=== PATIENT | female | born 1965 | race African-American/Black ===

== ENCOUNTER 2017-05-16 11:40 | Emergency (ER) | payer MEDICAID, OTHER ==
[~2017-05-16] VITALS: Ht 167.6 cm; Wt 81.6 kg
[~2017-05-16 11:40] MED LIST: ALBUTEROL SULF8.5 GM INH; AZITHROMYCIN250 MG ORAL; BENADRYL25 MG PO; CIPROFLOXACIN500 M2 ORAL; CYCLOBENZAPRINE10 MG ORAL; IBUPROFEN600 MG ORAL; LEXIVA700 MG ORAL; LOPERAMIDE2 MG PO; METRONIDAZOLE500 MG ORAL; NORCO 5-325 TA1 EACH ORAL; NORVIR100 MG ORAL; PROMETHAZINE-C118 M1 ORAL; ROXICODONE15 MG ORAL; TAMIFLU75 MG ORAL; TRUVADA 200 MG1 EAC1 ORAL; ZOFRAN4 MG PO
[2017-05-16 12:05] VITALS: BP 145/58
[2017-05-16 12:49] LABS: ANION GAP 4 mmol/L (5-15); BLOOD UREA NITROGEN 13 mg/dL (7-18); CALCIUM 8.8 MG/DL (8.5-10.1); CARBON DIOXIDE 29 MMOL/L (21-32); CHLORIDE 104 MMOL/L (98-107); POTASSIUM 3.8 MMOL/L (3.5-5.1); SODIUM 137 MMOL/L (136-145)
[2017-05-16 12:51] LABS: BASOPHILS % (AUTO) 0.8 % (0.0-2.0); EOSINOPHILS % (AUTO) 3.9 % (0.0-3.0); HEMATOCRIT 36.2 % (37.0-47.0); HEMOGLOBIN 11.8 G/DL (12.0-16.0); LYMPHOCYTES % (AUTO) 33.7 % (20.0-45.0); MEAN CORPUSCULAR VOLUME 97 FL (80-99); MONOCYTES % (AUTO) 8.1 % (1.0-10.0); NEUTROPHILS % (AUTO) 53.5 % (45.0-75.0); PLATELET COUNT 251 K/UL (150-450); RED BLOOD COUNT 3.72 M/UL (4.20-5.40); RED CELL DISTRIBUTION WIDTH 11.5 % (11.6-14.8); WHITE BLOOD COUNT 5.8 K/UL (4.8-10.8)
[2017-05-16 12:53] LABS: ALANINE AMINOTRANSFERASE 20 U/L (12-78); ALBUMIN 3.3 G/DL (3.4-5.0); ALBUMIN/GLOBULIN RATIO 0.8 (1.0-2.7); ALKALINE PHOSPHATASE 95 U/L (46-116); ASPARTATE AMINO TRANSFERASE 15 U/L (15-37); BILIRUBIN,TOTAL 0.2 MG/DL (0.2-1.0); CREATINE KINASE 128 U/L (26-308)
--- NOTE | 2017-05-16 13:01 | Diagnostic Imaging Report ---
Indication: Dyspnea Comparison: 05/19/2015 A single view chest radiograph was obtained. Findings: Vascular congestion and mild interstitial edema suspected with mild cardiomegaly. IMPRESSION: Suspect mild interstitial edema
[2017-05-16 13:30] VITALS: BP 119/64
--- NOTE | 2017-05-16 13:40 | Emergency Room Report ---
History of Present Illness General Chief Complaint: Chest Pain Source: Patient Present Illness HPI 51-year-old female presents to the emergency department complaining of 9/10 in severity anterior right-sided chest pain that she describes his discomfort and is tender x2 days. Patient reports onset after doing excessive housecleaning day prior to onset of her symptoms. Patient denies shortness of breath, fevers , chills, productive cough or sputum production. Patient denies cardiac history she reports that she has been borderline diabetic and has intermittent high blood pressure. Denies recent travel or ill contacts. Pt reprots hx of HIV. Denies Palpitations, LOC, AMS, dizziness, Changes in Vision, Sensation, paresthesias, or a sudden severe headache. Allergies: Coded Allergies: No Known Allergies (Verified Allergy, Unknown, 02/14/07) Uncoded Allergies: CHERRIES (Allergy, Unknown, HIVES, SWELLING, 12/18/10) Patient History Past Medical History: see triage record Past Surgical History: none Pertinent Family History: none Last Menstrual Period: 1 year ago Reviewed Nursing Documentation: PMH: Agreed, PSxH: Agreed Nursing Documentation-PMH Past Medical History: No History, Except For Hx Asthma: Yes Review of Systems All Other Systems: negative except mentioned in HPI Physical Exam Vital Signs Date Time Temp Pulse Resp B/P (MAP) Pulse Ox O2 Delivery O2 Flow Rate FiO2 05/16/17 11:49 97.5 74 22 145/75 96 Room Air 97.5 Sp02 EP Interpretation: reviewed, normal General Appearance: no apparent distress, alert, GCS 15, non-toxic Head: normocephalic, atraumatic Eyes: bilateral eye normal inspection, bilateral eye PERRL ENT: hearing grossly normal, normal voice Neck: full range of motion Respiratory: lungs clear, normal breath sounds, no respiratory distress, no accessory muscle use, no wheezing, speaking full sentences, other - TTP to the anterior sternum and right side of the ribcage- reproducible pain Cardiovascular #1: regular rate, rhythm, no edema, normal capillary refill Gastrointestinal: non tender, soft Rectal: deferred Musculoskeletal: back normal, gait/station normal, normal range of motion, tender - Reproducible anterior sternal TTP , and along the right side of the ribcage ttp. Neurologic: alert, oriented x3, responsive, motor strength/tone normal, sensory intact, speech normal, other - ambulatory, grossly normal Psychiatric: judgement/insight normal Skin: normal color, no rash, warm/dry, well hydrated, other - non-diaphoretic Medical Decision Making PA Attestation Dr. Hair is my supervising Physician whom patient management has been discussed with. Diagnostic Impression: Primary Impression: Chest wall muscle strain Qualified Codes: S29.011A - Strain of muscle and tendon of front wall of thorax, initial encounter Additional Impression: Nonspecific chest pain ER Course 51-year-old female presents to the emergency department complaining of 9/10 in severity anterior right-sided chest pain that she describes his discomfort and is tender x2 days. Patient reports onset after doing excessive housecleaning day prior to onset of her symptoms. Patient denies shortness of breath, fevers , chills, productive cough or sputum production. Patient denies cardiac history she reports that she has been borderline diabetic and has intermittent high blood pressure. Denies recent travel or ill contacts. Pt reprots hx of HIV. Denies Palpitations, LOC, AMS, dizziness, Changes in Vision, Sensation, paresthesias, or a sudden severe headache. Ddx considered but are not limited to MA, pneumonia, contusion, costochondritis , PE, ACS, Shoulder strain, Chest wall contusion. aortic dissection. Vital signs: are WNL, pt. is afebrile H&PE are most consistent with pain is reproducible upon palpation suspect musculoskeletal etiology however will do cardiac workup based on age and RF's ORDERS: - EKG: NSR 64 BPM -CBC +-CMP: Unremarkable -Troponin: negative 0.01 CXR: unremarkable ED INTERVENTIONS: - PT. placed on cardiac monitoring. -Toradol IV - [place] PO Given stable vital signs, laboratory and diagnostic results in conjunction with physical exam, I do not identify an emergent condition at this time. With current presentation, pt. is stable for close outpatient follow up and conservative treatment. D/w pt. to return promptly to ED with worsening or new symptoms.- Pt. and verbalizes' understanding and agreement with proposed treatment plan. DISCHARGE: At this time pt. is stable for d/c to home. Will provide printed patient care instructions, and any necessary prescriptions. Care plan and follow up instructions have been discussed with the patient prior to discharge. Labs Test 05/16/17 12:20 White Blood Count 5.8 K/UL (4.8-10.8) Red Blood Count 3.72 M/UL (4.20-5.40) Hemoglobin 11.8 G/DL (12.0-16.0) Hematocrit 36.2 % (37.0-47.0) Mean Corpuscular Volume 97 FL (80-99) Mean Corpuscular Hemoglobin 31.8 PG (27.0-31.0) Mean Corpuscular Hemoglobin Concent 32.7 G/DL (32.0-36.0) Red Cell Distribution Width 11.5 % (11.6-14.8) Platelet Count 251 K/UL (150-450) Mean Platelet Volume 9.5 FL (6.5-10.1) Neutrophils (%) (Auto) 53.5 % (45.0-75.0) Lymphocytes (%) (Auto) 33.7 % (20.0-45.0) Monocytes (%) (Auto) 8.1 % (1.0-10.0) Eosinophils (%) (Auto) 3.9 % (0.0-3.0) Basophils (%) (Auto) 0.8 % (0.0-2.0) Sodium Level 137 MMOL/L (136-145) Potassium Level 3.8 MMOL/L (3.5-5.1) Chloride Level 104 MMOL/L (98-107) Carbon Dioxide Level 29 MMOL/L (21-32) Anion Gap 4 mmol/L (5-15) Blood Urea Nitrogen 13 mg/dL (7-18) Creatinine 1.0 MG/DL (0.55-1.30) Estimat Glomerular Filtration Rate > 60 mL/min (>60) Glucose Level 89 MG/DL (74-106) Calcium Level 8.8 MG/DL (8.5-10.1) Total Bilirubin 0.2 MG/DL (0.2-1.0) Aspartate Amino Transf (AST/SGOT) 15 U/L (15-37) Alanine Aminotransferase (ALT/SGPT) 20 U/L (12-78) Alkaline Phosphatase 95 U/L (46-116) Total Creatine Kinase 128 U/L (26-308) Troponin I 0.017 ng/mL (0.000-0.056) Total Protein 7.7 G/DL (6.4-8.2) Albumin 3.3 G/DL (3.4-5.0) Globulin 4.4 g/dL Albumin/Globulin Ratio 0.8 (1.0-2.7) EKG Diagnostic Results EP Interpretation: Dr. Hair Rate: normal - 64 bpm Rhythm: NSR ST Segments: no acute changes ASA given to the pt in ED: No PA Scribe Text - EK BPM NSR - no acute ST changes reviewed by Dr. Hair, this interpretation was scribed by MAK Carrington Chest X-Ray Diagnostic Results Chest X-Ray Diagnostic Results : Chest X-Ray Ordered: Yes # of Views/Limited/Complete: 1 View Indication: Chest Pain EP Interpretation: Yes PA Xray: Interpretation reviewed, by supervising MD, and agrees with findings. Interpretation: no consolidation, no effusion, no pneumothorax, no acute cardiopulmonary disease Impression: No acute disease Electronically Signed by: Deborah Carrington PA-C Last Vital Signs Date Time Temp Pulse Resp B/P (MAP) Pulse Ox O2 Delivery O2 Flow Rate FiO2 05/16/17 12:05 97.5 70 19 145/58 100 Room Air 97.5 Disposition: HOME, SELF-CARE Condition: Stable Scripts Methocarbamol* (ROBAXIN*) 500 Mg Tablet 1000 MG PO TID, #42 TAB 0 Refills Prov: Deborah Carrington 05/16/17 Ibuprofen* (MOTRIN*) 600 Mg Tablet 600 MG ORAL THREE TIMES A DAY, #30 TAB 0 Refills Prov: Deborah CarringtonA. 05/16/17 Patient Instructions: Chest Wall Pain, Nonspecific Chest Pain Additional Instructions: Take medications as directed. Follow up with a Primary Care Provider in 3-5 days, even if your symptoms have resolved. --Please review list of primary care clinics, if you do not already have a primary care provider Return sooner to ED if new symptoms occur, or current symptoms become worse. Do not drink alcohol, drive, or operate heavy machinery while taking Muscle Relaxer as this may cause drowsiness. - Please note that this Emergency Department Report was dictated using [employer] care legal assistant technology software, occasionally this can lead to erroneous entry secondary to interpretation by the dictation equipment. Deborah Carrington May 16, 2017 13:40
[2017-05-16] MEDS ORDERED: ROBAXIN500 MG PO (13:41)
[2017-05-16] MEDS ORDERED: IBUPROFEN600 MG ORAL (13:41)
[2017-05-16] MEDS ORDERED: HYDROcodone/Acetamin 7.5/325 tab ORAL ONE (13:45)
[2017-05-16] MEDS ORDERED: Ketorolac 30mg Inj IV ONE (13:45)
[2017-05-16 14:04] VITALS: BP 119/64
--- NOTE | 2017-05-17 14:24 | Cardiology Report ---
APPROVED REPORT EKG Measurement Heart [id number] [id number] Normal sinus rhythm Normal ECG
== END 2017-05-16 14:11 | disposition home or self-care (01) ==
LOC: EMR 13:40
DX: S29.011A Strain of muscle and tendon of front wall of thorax, initial encounter (principal); X50.0XXA Overexertion from strenuous movement or load, initial encounter; Y93.E9 Activity, other interior property and clothing maintenance
CPT/HCPCS: 36415; 71045; 80053; 82550; 84484; 85025; 93005; 96374; 99284; J1885

== ENCOUNTER 2018-07-03 14:57 | Emergency (ER) | payer MEDICAID ==
[~2018-07-03] VITALS: Ht 160 cm; Wt 104.3 kg
[~2018-07-03 14:57] MED LIST changes: +ROBAXIN500 MG PO
[2018-07-03 14:59] VITALS: BP 127/72
--- NOTE | 2018-07-03 15:05 | NUR ---
ED Nurse Note: Patient walked in to ED c/o burning sensation while voiding since yesterday. patient reports lower abdomen discomfort. patient denies any vaginal discharge. patient is alert awake x4, ambulatory.
--- NOTE | 2018-07-03 15:09 | Emergency Room Report ---
History of Present Illness General Chief Complaint: Female Urogenital Problems Source: Medical Record Present Illness HPI 52-year-old female patient presents ER complaining of suprapubic tenderness and burning pain with urination for the past day. Reports has not taken medication for relief of symptoms. Denies history of UTI. Denies hematuria. Reports frequency. Denies flank pain or back pain. Denies fever, vomiting, chest pain , shortness of breath. Denies concern for STI, reports she is in a sexual monogamous relationship with her . Denies vaginal discharge. Denies genital rash or lesions. Denies other aggravating or relieving factors. Denies vomiting reports diarrhea. Reports watery diarrhea, denies blood in stool. Denies recent travel outside the country. Reports has not been able to eat today secondary to pain.. Allergies: Coded Allergies: No Known Allergies (Verified Allergy, Unknown, 02/14/07) Uncoded Allergies: CHERRIES (Allergy, Unknown, HIVES, SWELLING, 12/18/10) Patient History Past Medical History: see triage record Last Menstrual Period: 1 yr ago Reviewed Nursing Documentation: PMH: Agreed; PSxH: Agreed Nursing Documentation-PMH Past Medical History: No History, Except For Hx Cardiac Problems: No - HIV Hx Asthma: Yes Hx Neurological Problems: No - Peripheral neuropathy Review of Systems All Other Systems: negative except mentioned in HPI Physical Exam Vital Signs Date Time Temp Pulse Resp B/P (MAP) Pulse Ox O2 Delivery O2 Flow Rate FiO2 07/03/18 14:59 98.1 70 18 127/72 98 Room Air Sp02 EP Interpretation: reviewed, normal General Appearance: well appearing, no apparent distress, alert, GCS 15, non- toxic Head: normocephalic, atraumatic Eyes: bilateral eye normal inspection, bilateral eye PERRL ENT: hearing grossly normal, normal pharynx, no angioedema, normal voice, uvula midline, moist mucus membranes Neck: full range of motion, no bony tend Respiratory: lungs clear, normal breath sounds, no rhonchi, no respiratory distress, no accessory muscle use, no wheezing, speaking full sentences Cardiovascular #1: regular rate, rhythm, no edema Gastrointestinal: soft, no mass, non-distended, no guarding, no rebound, tenderness - Suprapubic, other - Negative Rovsing, negative obturator, negative heel strike Genitourinary: no CVA tenderness Musculoskeletal: back normal, digits/nails normal, gait/station normal, normal range of motion, non-tender Neurologic: alert, oriented x3, responsive, motor strength/tone normal, sensory intact Psychiatric: mood/affect normal Skin: no rash Medical Decision Making PA Attestation Dr. Charles is my supervising Physician whom patient management has been discussed with. Diagnostic Impression: Primary Impression: Epiploic appendagitis ER Course Pt presents to ED c/o dysuria and suprapubic discomfort. DDX considered but are not limited to cystitis, pyelonephritis, STI, vaginitis, , BV, yeast infection, constipation, appendicitis, colitis, gastritis, colitis. VITAL SIGNS are WNL, patient is afebrile. ER COURSE CBC and CMP unremarkable, no elevation in LFTs or WBCs, leukocytes within normal limits UA results show negative nitrites, low suspicion for UTI. If concern for STI, followup with STI clinic for testing and treatment. Denies STI concern. CT abdomen pelvis with contrast epiploic appendagitis. Discuss results with the patient. Provided patient with copy of results. Instructed patient to followup with PCP and discuss results of report with patient, discuss need for further treatment and referral. Consulted with general surgeon who recommended patient be admitted for dehydration prevention and pain control. Patient declined admission. Patient signed out AMA. Advised on taking Motrin for pain control. Reports pain symptoms improved while in the ER. Patient reports she is hungry and would like to go home and eat. States that she will return to the ER if pain symptoms worsen. Instructed patient to return to ER for new or worsening of symptoms including worsening of pain, intractable vomiting, blood in stool, chest pain, shortness of breath. ER precautions given. DISCHARGE Patient is stable for discharge. Patient resting comfortably, in no acute distress, nontoxic appearing, talking without difficulty. Will provide with patient care instructions and any necessary prescriptions. Patient understands and agrees to treatment plan. Patient encouraged to drink plenty of fluids. Patient to take medication as instructed. Care plan and follow-up instructions provided. Patient questions asked and answered. Reports understanding and agreement to treatment plan. Patient instructed to follow-up with primary care provider in 3 - 5 days. ER precautions given. Patient instructed to return to ER immediately for any new or worsening of symptoms. Including but not limited to fever, abdominal pain , intractable vomiting. - Please note that this Emergency Department Report was dictated using [employer] immunology technology software, occasionally this can lead to erroneous entry secondary to interpretation by the dictation equipment. Labs Test 07/03/18 16:00 07/03/18 17:10 Urine Color Yellow Urine Appearance Clear Urine pH 5 (4.5-8.0) Urine Specific [place] 1.020 (1.005-1.035) Urine Protein Negative (NEGATIVE) Urine Glucose (UA) Negative (NEGATIVE) Urine Ketones Negative (NEGATIVE) Urine Blood 2+ (NEGATIVE) Urine Nitrite Negative (NEGATIVE) Urine Bilirubin Negative (NEGATIVE) Urine Urobilinogen Normal MG/DL (0.0-1.0) Urine Leukocyte Esterase 1+ (NEGATIVE) Urine RBC 2-4 /HPF (0 - 2) Urine WBC 0-2 /HPF (0 - 2) Urine Squamous Epithelial Cells Occasional /LPF Urine Bacteria Occasional /HPF (NONE) White Blood Count 9.9 K/UL (4.8-10.8) Red Blood Count 3.84 M/UL (4.20-5.40) Hemoglobin 12.0 G/DL (12.0-16.0) Hematocrit 36.7 % (37.0-47.0) Mean Corpuscular Volume 96 FL (80-99) Mean Corpuscular Hemoglobin 31.4 PG (27.0-31.0) Mean Corpuscular Hemoglobin Concent 32.8 G/DL (32.0-36.0) Red Cell Distribution Width 11.3 % (11.6-14.8) Platelet Count 269 K/UL (150-450) Mean Platelet Volume 8.7 FL (6.5-10.1) Neutrophils (%) (Auto) 60.7 % (45.0-75.0) Lymphocytes (%) (Auto) 29.2 % (20.0-45.0) Monocytes (%) (Auto) 7.1 % (1.0-10.0) Eosinophils (%) (Auto) 1.7 % (0.0-3.0) Basophils (%) (Auto) 1.2 % (0.0-2.0) Sodium Level 139 MMOL/L (136-145) Potassium Level 3.4 MMOL/L (3.5-5.1) Chloride Level 103 MMOL/L (98-107) Carbon Dioxide Level 27 MMOL/L (21-32) Anion Gap 9 mmol/L (5-15) Blood Urea Nitrogen 10 mg/dL (7-18) Creatinine 1.1 MG/DL (0.55-1.30) Estimat Glomerular Filtration Rate > 60 mL/min (>60) Glucose Level 82 MG/DL (74-106) Calcium Level 8.9 MG/DL (8.5-10.1) Total Bilirubin 0.4 MG/DL (0.2-1.0) Aspartate Amino Transf (AST/SGOT) 13 U/L (15-37) Alanine Aminotransferase (ALT/SGPT) 19 U/L (12-78) Alkaline Phosphatase 87 U/L (46-116) Total Protein 8.4 G/DL (6.4-8.2) Albumin 3.7 G/DL (3.4-5.0) Globulin 4.7 g/dL Albumin/Globulin Ratio 0.8 (1.0-2.7) Lipase 125 U/L (73-393) CT/MRI/US Diagnostic Results CT/MRI/US Diagnostic Results : Imaging Test Ordered: CT abdomen pelvis Impression Scar atelectasis right base Circumscribed area of pericolonic fat stranding and edema proximal sigmoid colon for example coronal 34 and 35 most suggestive of epiploic appendagitis No bowel dilation or free air Abdominal solid organs and gallbladder appear within limits Normal caliber appendix without secondary signs Very small free fluid Last Vital Signs Date Time Temp Pulse Resp B/P (MAP) Pulse Ox O2 Delivery O2 Flow Rate FiO2 07/03/18 14:59 98.1 70 18 127/72 98 Room Air Status: improved Disposition: AGAINST MEDICAL ADVICE Condition: Stable Scripts Ibuprofen* (MOTRIN*) 600 Mg Tablet 600 MG ORAL Q8H PRN for For Pain, #30 TAB 0 Refills Prov: Slick Lennon 07/03/18 Patient Instructions: Abdominal Pain, Adult, [id number], Urinary Tract Infection Additional Instructions: Followup with primary care provider in 2-3 days and discuss referral to general surgeon. Take medications as directed. Take Motrin for pain symptoms. Patient questions asked and answered. ER precautions given, patient instructed to return to ER immediately for any new or worsening of symptoms including but not limited to worsening of pain symptoms, blood in stool, chest pain, shortness of breath, intractable vomiting. Slick Lennon Jul 03, 2018 15:09
[2018-07-03] MEDS ORDERED: Phenazopyridine 200mg tab ORAL ONE (15:15)
--- NOTE | 2018-07-03 15:45 | NUR ---
ED Nurse Note: patient drinking 3+ cups of water, patient states she is not ready to void yet.
--- NOTE | 2018-07-03 16:10 | NUR ---
ED Nurse Note: urine sent down to lab
[2018-07-03 16:30] LABS: APPEARANCE,URINE CLEAR; BILIRUBIN, URINE NEGATIVE (NEGATIVE); GLUCOSE, URINE (UA) NEGATIVE (NEGATIVE); KETONES,URINE NEGATIVE (NEGATIVE); LEUKOCYTE ESTERASE ,URINE 1+ (NEGATIVE); NITRITE,URINE NEGATIVE (NEGATIVE); PH,URINE 5 (4.5-8.0); PROTEIN,URINE NEGATIVE (NEGATIVE); UROBILINOGEN,URINE NORMAL MG/DL (0.0-1.0)
[2018-07-03 16:33] LABS: COLOR,URINE YELLOW
[2018-07-03] MEDS ORDERED: Morphine Sulfate 4mg/ml Inj (IV USE ONLY) IVP ONE (17:15)
[2018-07-03] MEDS ORDERED: Isovue-300 100ml vial INJ PRN (17:15)
[2018-07-03 17:40] LABS: BASOPHILS % (AUTO) 1.2 % (0.0-2.0); EOSINOPHILS % (AUTO) 1.7 % (0.0-3.0); HEMATOCRIT 36.7 % (37.0-47.0); LYMPHOCYTES % (AUTO) 29.2 % (20.0-45.0); MEAN CORPUSCULAR VOLUME 96 FL (80-99); MONOCYTES % (AUTO) 7.1 % (1.0-10.0); NEUTROPHILS % (AUTO) 60.7 % (45.0-75.0); PLATELET COUNT 269 K/UL (150-450); RED BLOOD COUNT 3.84 M/UL (4.20-5.40); RED CELL DISTRIBUTION WIDTH 11.3 % (11.6-14.8); WHITE BLOOD COUNT 9.9 K/UL (4.8-10.8)
[2018-07-03 17:41] LABS: ANION GAP 9 mmol/L (5-15); BLOOD UREA NITROGEN 10 mg/dL (7-18); CALCIUM 8.9 MG/DL (8.5-10.1); CARBON DIOXIDE 27 MMOL/L (21-32); CHLORIDE 103 MMOL/L (98-107); CREATININE 1.1 MG/DL (0.55-1.30); POTASSIUM 3.4 MMOL/L (3.5-5.1); SODIUM 139 MMOL/L (136-145)
[2018-07-03 17:45] LABS: ALANINE AMINOTRANSFERASE 19 U/L (12-78); ALBUMIN 3.7 G/DL (3.4-5.0); ALBUMIN/GLOBULIN RATIO 0.8 (1.0-2.7); ALKALINE PHOSPHATASE 87 U/L (46-116); ASPARTATE AMINO TRANSFERASE 13 U/L (15-37); BILIRUBIN,TOTAL 0.4 MG/DL (0.2-1.0)
--- NOTE | 2018-07-03 18:00 | NUR ---
ED Nurse Note: patient went down for CT scan
--- NOTE | 2018-07-03 18:15 | NUR ---
ED Nurse patient came back, stable in bed
[2018-07-03 18:44] VITALS: BP 113/76
--- NOTE | 2018-07-03 19:10 | NUR ---
HAND-OFF: Report given to Mirian YO. PAtient is stable in bed.
--- NOTE | 2018-07-03 19:30 | NUR ---
ED Nurse Note: Patient is restiing comfortably with no complaints of pain. Patient has significant other at bedside awaiting results of CT examination.
--- NOTE | 2018-07-03 19:35 | NUR ---
ED Nurse Note: Provider at bedside discussing results of CT.
[2018-07-03] MEDS ORDERED: IBUPROFEN600 MG ORAL (19:56)
[2018-07-03 20:00] VITALS: BP 113/76
--- NOTE | 2018-07-03 20:00 | NUR ---
AMA: Patient left AMA accompanied by . Patient expressed understanding about level of importance of recommendations but insisted on leaving and returning if symptoms worsen. Patient ambulatory with guarded gait, A&Ox4, IV removed, ID band removed. Patient departed with all personal belongings accompanied by her . SEE AMA FORM.
--- NOTE | 2018-07-04 16:20 | Diagnostic Imaging Report ---
Clinical Indication: Abdominal pain Technique: No oral contrast utilized, per emergency room physician request IV administration nonionic contrast. Venous phase spiral acquisition obtained through the abdomen and pelvis. Multiplanar reconstructions were generated. Total dose length product 935.43 mGycm. CTDIvol(s) 19.07 mGy. Dose reduction achieved using automated exposure control Comparison: 12/19/2010 Findings: Rim of density is seen surrounding fat adjacent to the mid sigmoid colon, best appreciated on the coronal images, may represent a small focus of epiploic appendagitis. The appendix is normal. No evidence of diverticulosis or diverticulitis. No small bowel distention. Distal esophagus, stomach, duodenum are unremarkable. There is trace free pelvic fluid. No free intraperitoneal gas. The gallbladder questionably contains small gallstones. No gallbladder wall thickening or pericholecystic edema. The liver demonstrates a subcentimeter low-attenuation lesion in segment 2. No biliary ductal dilatation. The pancreas, spleen, adrenals are unremarkable. There are small subcentimeter bilateral low-attenuation renal lesions, too small to characterize. No retroperitoneal or mesenteric mass or adenopathy. No pelvic mass or adenopathy. Uterus and adnexal structures and bladder are unremarkable. There are atelectatic changes at the right lung base. The bones are unremarkable When compared to the prior exam, no definite significant interim change Impression: Possible perisigmoid epiploic appendagitis No other acute abnormality Trace free pelvic fluid, presumably physiologic Equivocal cholelithiasis Subcentimeter low-attenuation left lobe liver lesion. Subcentimeter low-attenuation bilateral renal lesions, too small to characterize, most likely benign simple cysts. No further follow-up necessary Right basilar atelectasis This agrees with the preliminary interpretation provided overnight by [facility] teleradiology service, with minor variation. The CT scanner at [facility] is accredited by the [employer] and the scans are performed using protocols designed to limit radiation exposure to as low as reasonably achievable to attain images of sufficient resolution adequate for diagnostic evaluation.
== END 2018-07-03 20:00 | disposition left against medical advice (07) ==
LOC: EMR 15:32
DX: K63.89 Other specified diseases of intestine (principal); J45.909 Unspecified asthma, uncomplicated; G62.9 Polyneuropathy, unspecified
CPT/HCPCS: 36415; 74177; 80053; 81003; 83690; 85025; 96361; 96374; 96375; 99284; J2270; J2405; Q9967

== ENCOUNTER 2019-05-18 17:41 | Emergency (ER) | payer MEDICAID ==
[~2019-05-18] VITALS: Ht 162.6 cm; Wt 104.3 kg
--- NOTE | 2019-05-18 18:02 | NUR ---
ED Nurse Note: Patient walked in to ER due to insect bite, stated "something bit me 2 hrs ago, and I can barely move my toes" pt ambulated with spouse to ed
--- NOTE | 2019-05-18 18:06 | Emergency Room Report ---
History of Present Illness General Chief Complaint: Lower Extremity Injury Source: Patient Present Illness HPI 53-year-old female presents to the emergency department complaining of 10/10 in severity acute onset sharp burning left foot pain with radiation up the left lower leg. reports localized swelling, tenderness and erythema. Pt. denies fevers, chills or swollen tender lymph nodes. Denies lesions/rashes elsewhere on the body. Denies new medications or body washes or creams. Denies swelling of the lips, tongue , throat or airway. Denies wheezing, or shortness of breath. Denies recent travel, recent illness or ill contacts. denies blisters , oral lesions, or sloughing of the skin. Patient has history of immune compromise as she is HIV positive Allergies: Coded Allergies: No Known Allergies (Verified Allergy, Unknown, 02/14/07) Uncoded Allergies: CHERRIES (Allergy, Unknown, HIVES, SWELLING, 12/18/10) Patient History Past Medical History: see triage record Past Surgical History: none Pertinent Family History: none Now: No Reviewed Nursing Documentation: PMH: Agreed; PSxH: Agreed Nursing Documentation-PMH Hx Asthma: Yes Hx Neurological Problems: No - Peripheral neuropathy Review of Systems All Other Systems: negative except mentioned in HPI Physical Exam Vital Signs Date Time Temp Pulse Resp B/P (MAP) Pulse Ox O2 Delivery O2 Flow Rate FiO2 05/18/19 17:55 98.2 66 20 120/69 (86) 98 Room Air Sp02 EP Interpretation: reviewed, normal General Appearance: no apparent distress, alert, GCS 15, non-toxic Head: normocephalic, atraumatic Eyes: bilateral eye normal inspection, bilateral eye PERRL ENT: hearing grossly normal, normal voice Neck: full range of motion Respiratory: lungs clear, normal breath sounds, no wheezing, speaking full sentences Cardiovascular #1: regular rate, rhythm, no edema, normal capillary refill Cardiovascular #2: 2+ dorsalis pedis (L) Musculoskeletal: normal range of motion, gait/station normal, non-tender Neurologic: alert, motor strength/tone normal, oriented x3, sensory intact, responsive, speech normal Psychiatric: judgement/insight normal Skin: other - erythema, swelling and warmth to the dorsum of the left foot. small punctate area noticed superfically. pt. is extremely sensitive. NVI Lymphatic: no adenopathy Medical Decision Making PA Attestation Dr. Irving is my supervising Physician whom patient management has been discussed with. Diagnostic Impression: Primary Impression: Insect bite of foot, infected Qualified Codes: S90.862A - Insect bite (nonvenomous), left foot, initial encounter; L08.9 - Local infection of the skin and subcutaneous tissue, unspecified; W57.XXXA - Bitten or stung by nonvenomous insect and other nonvenomous arthropods, initial encounter ER Course 53-year-old female presents to the emergency department complaining of 10/10 in severity acute onset sharp burning left foot pain with radiation up the left lower leg. reports localized swelling, tenderness and erythema. Pt. denies fevers, chills or swollen tender lymph nodes. Denies lesions/rashes elsewhere on the body. Denies new medications or body washes or creams. Denies swelling of the lips, tongue , throat or airway. Denies wheezing, or shortness of breath. Denies recent travel, recent illness or ill contacts. denies blisters , oral lesions, or sloughing of the skin. Patient has history of immune compromise as she is HIV positive. Ddx considered but are not limited to cellulitis, scabies, insect bites, tic bites, spider bites, contact dermatitis, Drug reaction, allergic reaction, fungal infection, lice. Vital signs: are WNL, pt. is afebrile H&PE are most consistent with insect bite with localized reaction in an immune compromised patient ORDERS: none required at this time, the diagnosis is clinical ED INTERVENTIONS: -Ice pack is applied to the affected area -30 mg oxycodone given orally -500 mg Keflex given orally -Wound is cleaned/irrigated and bacitracin is applied. -Patient is provided with crutches and instructed on their use DISCHARGE: At this time pt. is stable for d/c to home. Will provide printed patient care instructions, and any necessary prescriptions. Care plan and follow up instructions have been discussed with the patient prior to discharge. Last Vital Signs Date Time Temp Pulse Resp B/P (MAP) Pulse Ox O2 Delivery O2 Flow Rate FiO2 05/18/19 17:55 98.2 66 20 120/69 (86) 98 Room Air Disposition: HOME, SELF-CARE Condition: Stable Scripts Bacitracin Zinc/Polymyx B Sulf (Double Antibiotic Ointment) 28.4 Gm Oint...g. 1 APPLIC TP BID, #28.3 GM Prov: Deborah Carrington 05/18/19 Ibuprofen* (MOTRIN*) 600 Mg Tablet 600 MG ORAL THREE TIMES A DAY, #21 TAB 0 Refills Prov: Deborah Carrington 05/18/19 Cephalexin* (KEFLEX*) 500 Mg Capsule 500 MG ORAL EVERY 12 HOURS for 7 Days, #14 CAP 0 Refills Prov: Deborah Carrington 05/18/19 Diphenhydramine Hcl (ALLERGY) 25 Mg Tablet 25 MG PO Q6HR, #30 TAB Prov: Deborah Carrington 05/18/19 Patient Instructions: Insect Bite Additional Instructions: Take medications as directed. Do not drink alcohol, drive, or operate heavy machinery while taking Benadryl as this may cause drowsiness. Follow up with a Primary Care Provider in 3-5 days, even if your symptoms have resolved. Return sooner to ED if new symptoms occur, or current symptoms become worse. - Please note that this Emergency Department Report was dictated using Beats Music[employer] specialist technology software, occasionally this can lead to erroneous entry secondary to interpretation by the dictation equipment. Deborah Carrington May 18, 2019 18:06
[2019-05-18] MEDS ORDERED: Cephalexin 500mg cap ORAL ONE (18:30)
[2019-05-18] MEDS ORDERED: Bacitracin Oint UD TOPIC ONE (18:30)
[2019-05-18] MEDS ORDERED: Ketorolac 30mg Inj IM ONE (18:30)
[2019-05-18] MEDS ORDERED: oxyCODONE 15mg IR tab ORAL ONE (18:30)
--- NOTE | 2019-05-18 19:09 | NUR ---
HAND-OFF: Report given to marina mcneill.
[2019-05-18] MEDS ORDERED: IBUPROFEN600 MG ORAL (19:18)
[2019-05-18] MEDS ORDERED: DOUBLE ANTIBI28.4 GM TP (19:18)
[2019-05-18] MEDS ORDERED: CEPHALEXIN500 MG ORAL (19:18)
[2019-05-18] MEDS ORDERED: ALLERGY25 M1 PO (19:18)
[2019-05-18 19:21] VITALS: BP 120/69
--- NOTE | 2019-05-18 19:22 | NUR ---
ED Nurse Note: Pt cleared by health care Provider for discharge. DC instructions/prescription was given and explained to pt and verbalized understanding of teachings. All medical deviecs such as ID band removed. Pt is AAO x4, ambulatory and left with all personal belongings.
== END 2019-05-18 19:30 | disposition home or self-care (01) ==
LOC: EMR 19:30
DX: S90.862A Insect bite (nonvenomous), left foot, initial encounter (principal); L08.9 Local infection of the skin and subcutaneous tissue, unspecified; W57.XXXA Bitten or stung by nonvenomous insect and other nonvenomous arthropods, initial encounter; G62.9 Polyneuropathy, unspecified; Z91.018 Allergy to other foods; B20 Human immunodeficiency virus [HIV] disease
CPT/HCPCS: 96372; J1885; Z7502; 99283

== ENCOUNTER 2019-05-25 09:43 | Emergency (ER) | payer MEDICAID ==
[~2019-05-25] VITALS: Ht 160 cm; Wt 106.6 kg
[~2019-05-25 09:43] MED LIST changes: +ALLERGY25 M1 PO; +CEPHALEXIN500 MG ORAL; +DOUBLE ANTIBI28.4 GM TP
[2019-05-25 09:45] VITALS: BP 126/74
--- NOTE | 2019-05-25 09:53 | NUR ---
ED Nurse Note: Pt walked into ED w/ c/o L blurry eye for 2 days. Pt visual acuit L eye 20/70. Pt ia alert and orientedx4, ambulatory. Pt has non-pitting edema underneath L eye. L eye sclera is white. has seen patient.
[2019-05-25 10:00] VITALS: BP 121/71
[2019-05-25] MEDS ORDERED: CLINDAMYCIN HC150 MG ORAL (10:01)
--- NOTE | 2019-05-25 10:03 | Emergency Room Report ---
History of Present Illness General Chief Complaint: Eye Problems Source: Patient Present Illness HPI Disclaimer: Please note that this report is being documented using DRAGON technology. This can lead to erroneous entry secondary to incorrect interpretation by the dictating instrument. HPI: 53-year-old female presents for evaluation of left facial swelling. Patient states over the past 2 to 3 days she has noted swelling over the left cheekbone with some purulent drainage. Said there was a pustule that popped and was draining pus 2 days ago and has since stopped and scabbed over. She states her left cheek bone is tender to palpation and swollen. Denies any pain in the eyes, changes in her vision, restriction with extraocular movements, headaches, fever, chills, vomiting, earache, sore throat or other symptoms. She was recently on Keflex for lower extremity cellulitis secondary to an insect bite but she did not finish the entire course of antibiotics. Allergies: Coded Allergies: No Known Allergies (Verified Allergy, Unknown, 02/14/07) Uncoded Allergies: CHERRIES (Allergy, Unknown, HIVES, SWELLING, 12/18/10) Patient History Last Menstrual Period: 2015 Now: No Nursing Documentation-[facility] Past Medical History: No History, Except For Hx Asthma: Yes Hx Neurological Problems: No - Peripheral neuropathy Review of Systems All Other Systems: negative except mentioned in HPI Physical Exam Vital Signs Date Time Temp Pulse Resp B/P (MAP) Pulse Ox O2 Delivery O2 Flow Rate FiO2 05/25/19 09:45 97.5 64 18 126/74 (91) 99 Room Air General: Awake and alert, no acute distress HEENT: NC/AT. EOMI. PERRLA. Sclera are white, noninjected, nonpurulent not edematous. No hyphema, no hypopyon. No restriction to extraocular movements, no entrapment. No lid edema in the upper or lower lid. There is some mild edema erythema and warmth over the left maxilla without fluctuance. Overlying scabbing with purulent material. Cannot express any further material. Resp: Normal work of breathing Skin: Intact. No abrasions, laceration or rash over the exposed skin MSK: Normal tone and bulk. Moving all extremities. No obvious deformity. Neuro: Awake and alert. Mentating appropriately Medical Decision Making Diagnostic Impression: Primary Impression: Facial cellulitis ER Course Is a 53-year-old female presenting for evaluation of left sided facial swelling for the past 2 to 3 days with some purulent drainage that is now resolved. Differential includes was not limited to pustule, cellulitis, facial abscess, preseptal cellulitis, orbital cellulitis, conjunctivitis, chemosis, allergic reaction to name a few. Patient has no ocular complaints, no pain, no purulence , no restriction extraocular movements and there is no edema of the upper or lower lid. The swelling, warmth and pain appear to be centered over the left maxilla though there is no expressible purulence there is some purulent crusting above. May have been a pimple or other pustule that the patient popped developing a secondary cellulitis. Will start on clindamycin. I encouraged her to follow-up with her PMD very quickly and to return if there is any spreading of the swelling to the orbit. They understand agree with this treatment plan will be discharged home. Last Vital Signs Date Time Temp Pulse Resp B/P (MAP) Pulse Ox O2 Delivery O2 Flow Rate FiO2 05/25/19 09:45 97.5 64 18 126/74 (91) 99 Room Air Disposition: HOME, SELF-CARE Condition: Stable Scripts Clindamycin Hcl* (CLINDAMYCIN HCL*) 150 Mg Capsule 450 MG ORAL TID for 7 Days, #63 CAP Prov: Bo Irving MD 05/25/19 Referrals: [facility] Patient Instructions: Cellulitis Additional Instructions: Please take the antibiotics as prescribed and finish the entire course of antibiotics even if symptoms start to improve over the next few days. Please follow-up with your primary care doctor in the next 1 to 3 days to discuss this emergency department visit and for reevaluation. If you have any new or worsening symptoms please return to the emergency department for reevaluation. Please note that this report is being documented using [employer] technology. This can lead to erroneous entry secondary to incorrect interpretation by the dictating instrument. Bo Irving MD May 25, 2019 10:03
--- NOTE | 2019-05-25 10:07 | NUR ---
ER DISCHARGE NOTE: Patient is cleared to be discharged per ERMD, pt is aox4, on room air, with stable vital signs. pt was given dc and prescription instructions, pt was able to verbalize understanding, pt id band removed. pt is able to ambulate with steady gait. pt took all belongings. Pt educated on antibx.
== END 2019-05-25 10:08 | disposition home or self-care (01) ==
LOC: EMR 09:55
DX: L03.211 Cellulitis of face (principal); G62.9 Polyneuropathy, unspecified; Z91.018 Allergy to other foods
CPT/HCPCS: 99282

== ENCOUNTER 2020-01-09 16:36 | Emergency (ER) | payer MEDICAID ==
[~2020-01-09] VITALS: Ht 162.6 cm; Wt 104.3 kg
[~2020-01-09 16:36] MED LIST changes: +CLINDAMYCIN HC150 MG ORAL
[2020-01-09 16:45] VITALS: BP 121/76
--- NOTE | 2020-01-09 16:55 | NUR ---
ED Nurse Note: Patient from home and walked in due to right forearm blister and left arm wound. Pt was cooking and accidentally burned her arm. AAO x4 and ambulatory with non labored breathing.
[2020-01-09] MEDS ORDERED: Tetanus/Diptheria/Pertussis IM ONE (17:15)
[2020-01-09] MEDS ORDERED: HYDROcodone/Acetamin 7.5/325 tab ORAL ONE (17:30)
--- NOTE | 2020-01-09 17:35 | Emergency Room Report ---
History of Present Illness General Chief Complaint: Burn/Smoke Inhalation Source: Medical Record Present Illness HPI 54-year-old female presents to the emergency department complaining of 10 out of 10 severity pain to the right forearm acute onset today while cooking. Patient reports she sustained a burn injury from the steam as she lifted the lid on a saute foss. Patient states she is not up-to-date with her tetanus vaccination. She is left-hand dominant. She reports 1 blister. She reports palpation increases her pain. No other aggravating or relieving factors. Pt. with hx of HIV. Allergies: Coded Allergies: No Known Allergies (Verified Allergy, Unknown, 02/14/07) Uncoded Allergies: CHERRIES (Allergy, Unknown, HIVES, SWELLING, 12/18/10) COVID-19 Screening Contact w/high risk pt: No Experienced COVID-19 symptoms?: No COVID-19 Testing performed UNIFORM ROOM ATTENDANT: No Patient History Past Medical History: see triage record Past Surgical History: none Pertinent Family History: none Last Menstrual Period: 1 yr ago Now: No Reviewed Nursing Documentation: PMH: Agreed; PSxH: Agreed Nursing Documentation-PMH Past Medical History: No History, Except For Hx Asthma: Yes Hx Neurological Problems: No - Peripheral neuropathy Review of Systems All Other Systems: negative except mentioned in HPI Physical Exam Vital Signs Date Time Temp Pulse Resp B/P (MAP) Pulse Ox O2 Delivery O2 Flow Rate FiO2 01/09/20 16:45 98.2 69 18 121/76 (91) 99 Room Air Sp02 EP Interpretation: reviewed, normal General Appearance: no apparent distress, alert, GCS 15, non-toxic Head: normocephalic, atraumatic Eyes: bilateral eye normal inspection, bilateral eye PERRL ENT: hearing grossly normal, normal voice Neck: full range of motion Respiratory: chest non-tender, lungs clear, normal breath sounds, no respiratory distress, no wheezing, speaking full sentences Cardiovascular #1: regular rate, rhythm, no edema, normal capillary refill Cardiovascular #2: 2+ radial (R) Musculoskeletal: normal range of motion, gait/station normal, non-tender Neurologic: alert, motor strength/tone normal, oriented x3, sensory intact, responsive, speech normal Psychiatric: judgement/insight normal Skin: other - Second -degree burn covering 1 % of the BSA, non-circumferential to the medial right forearm. One blister noted that is 1cm in diameter. Medical Decision Making PA Attestation Dr. Irving is my supervising Physician whom patient management has been discussed with. Diagnostic Impression: Primary Impression: Second degree burn of arm Qualified Codes: T22.211A - Burn of second degree of right forearm, initial encounter ER Course 54-year-old female presents to the emergency department complaining of 10 out of 10 severity pain to the right forearm acute onset today while cooking. Patient reports she sustained a burn injury from the steam as she lifted the lid on a saute foss. Patient states she is not up-to-date with her tetanus vaccination. She is left-hand dominant. She reports 1 blister. She reports palpation increases her pain. No other aggravating or relieving factors. Ddx considered but are not limited to cellulitis, burn, fracture, fungal infection, dehydration just to name a few. Vital signs: are WNL, pt. is afebrile H&PE are most consistent with : Second -degree burn covering 1 % of the BSA, non-circumferential to the medial right forearm. One blister noted that is 1cm in diameter. ORDERS: none required at this time, the diagnosis is clinical ED INTERVENTIONS: --Tdap IM -Silvadene cream TP & sterile dressing is applied - Acworth PO - Right arm Sling applied by technical administrator. Pt. remains neurovascularly intact. DISCHARGE: At this time pt. is stable for d/c to home. Will provide printed patient care instructions, and any necessary prescriptions. Care plan and follow up instructions have been discussed with the patient prior to discharge. Last Vital Signs Date Time Temp Pulse Resp B/P (MAP) Pulse Ox O2 Delivery O2 Flow Rate FiO2 01/09/20 16:45 98.2 69 18 121/76 (91) 99 Room Air Status: improved Disposition: HOME, SELF-CARE Condition: Stable Scripts Ibuprofen* (MOTRIN*) 600 Mg Tablet 600 MG ORAL THREE TIMES A DAY, #20 TAB Prov: Deborah Carrington 01/09/20 Silver Sulfadiazine (Ssd) 25 Gm Cream..g. 1 APPLIC TP DAILY, #25 GM Prov: Deborah Carrington 01/09/20 Hydrocodone/Acetaminophen 5-325* (HYDROCODONE/ACETAMINOPHEN 5-325*) 1 Each Tablet 1 TAB ORAL Q6H PRN for For Pain, #12 TAB 0 Refills Prov: Deborah Carrington 01/09/20 Patient Instructions: Second-Degree Burn Additional Instructions: Take medications as directed. Do not drink alcohol, drive, or operate heavy machinery while taking Acworth as this may cause drowsiness. Follow up with a Primary Care Provider in 3-5 days, even if your symptoms h ave resolved. --Please review list of primary care clinics, if you do not already have a primary care provider Return sooner to ED if new symptoms occur, or current symptoms become worse. - Please note that this Emergency Department Report was dictated using NCTechmedication manager technology software, occasionally this can lead to erroneous entry secondary to interpretation by the dictation equipment. Deborah Carrington Jan 09, 2020 17:35
[2020-01-09] MEDS ORDERED: HYDROCODON-ACE1 EA15 ORAL (17:36)
[2020-01-09] MEDS ORDERED: IBUPROFEN600 M1 ORAL (17:36)
[2020-01-09] MEDS ORDERED: SSD20 GM TP (17:36)
[2020-01-09 17:52] VITALS: BP 134/70
--- NOTE | 2020-01-09 17:52 | NUR ---
ER DISCHARGE NOTE: Patient is cleared to be discharged per PA, pt is aox4, on room air, with stable vital signs. pt was given dc and prescription instructions, pt was able to verbalize understanding, pt id band removed without complications. pt is able to ambulate with steady gait. pt took all belongings.
== END 2020-01-09 17:52 | disposition home or self-care (01) ==
LOC: EMR 17:05
DX: T22.211A Burn of second degree of right forearm, initial encounter (principal); G62.9 Polyneuropathy, unspecified; Z91.018 Allergy to other foods; X13.1XXA Other contact with steam and other hot vapors, initial encounter; Y93.G3 Activity, cooking and baking; Y92.9 Unspecified place or not applicable; B20 Human immunodeficiency virus [HIV] disease; Z23 Encounter for immunization
CPT/HCPCS: 90471; 90715; Z7502; 99282

== ENCOUNTER 2020-01-13 09:26 | Emergency (ER) | payer MEDICAID ==
[~2020-01-13] VITALS: Ht 162.6 cm; Wt 99.8 kg
[~2020-01-13 09:26] MED LIST changes: +HYDROCODON-ACE1 EA15 ORAL; +IBUPROFEN600 M1 ORAL; +SSD20 GM TP
--- NOTE | 2020-01-13 09:40 | NUR ---
ED Nurse Note: Pt ambulated to ED d/t RT forearm blister possibly steamed burn from cooking happened last saturday. Pt is AOx4 calm and cooperative to care; pt denies any pain, affected skin intact encapsuled fluids non-draining. Pt's VSS, on RA, afebrile on triage.
[2020-01-13 09:49] VITALS: BP 114/64
--- NOTE | 2020-01-13 09:59 | Emergency Room Report ---
History of Present Illness General Chief Complaint: Skin Rash/Abscess Source: Patient, Medical Record Present Illness HPI Disclaimer: Please note that this report is being documented using DRAGON technology. This can lead to erroneous entry secondary to incorrect interpretation by the dictating instrument. HPI: 54-year-old [id number] female presents for reevaluation of a burn to the right forearm. Initial injury 3 days ago. Patient was cooking sustained a steam burn to the right forearm over the ventral surface. She was seen in this emergency department had her tetanus updated, wound wrapped started on Silvadene, pain medication. Reports compliance with Silvadene. Came in for wound reevaluation as the bulla has not yet ruptured and did not appear to be healing to her. Denied surrounding erythema, edema, bleeding, drainage, skin sloughing. Denied limitation of range of motion of the extremity or repeat injury. Denied fever, chills or other complaints at this time. PMH: HIV PSH: Reviewed Allergies: Denied Social Hx: Reviewed Allergies: Coded Allergies: No Known Allergies (Verified Allergy, Unknown, 02/14/07) Uncoded Allergies: CHERRIES (Allergy, Unknown, HIVES, SWELLING, 12/18/10) COVID-19 Screening Contact w/high risk pt: No Experienced COVID-19 symptoms?: No COVID-19 Testing performed R&D LAB TECHNICIAN: No Patient History Now: No Nursing Documentation-PMH Hx Asthma: Yes Hx Neurological Problems: No - Peripheral neuropathy Review of Systems All Other Systems: negative except mentioned in HPI Physical Exam Vital Signs Date Time Temp Pulse Resp B/P (MAP) Pulse Ox O2 Delivery O2 Flow Rate FiO2 01/13/20 09:39 97.9 65 18 114/64 (81) 96 Room Air General: Awake and alert, no acute distress HEENT: NC/AT. EOMI. Resp: Normal work of breathing Skin: Intact. 3 x 4 flaccid bulla over the ventral surface of the right forearm. Mild surrounding erythema but no edema, no breakdown, no ulcerations, no bleeding, no purulence. Mildly tender to palpation notes overlying skin is intact. MSK: Normal tone and bulk. Moving all extremities. No obvious deformity. Neuro: Awake and alert. Mentating appropriately Medical Decision Making Diagnostic Impression: Primary Impression: Visit for wound check ER Course Is a 54-year-old female who sustained a steam burn to the right forearm 3 days ago with second-degree burn and flaccid bulla formation. Presented for wound reevaluation. Wound appears intact, no signs of infection. She is compliant with Silvadene topical medication. We will continue Silvadene, place gauze dressing and Kerlix wrap to protect the bulla. Advised her to keep it covered until wound healing is complete. Tetanus was updated on last visit. No other complaints from patient. Stable for outpatient follow-up. Referred to PMD. Advised to return with new or worsening symptoms. She understands and agrees with this treatment plan. Last Vital Signs Date Time Temp Pulse Resp B/P (MAP) Pulse Ox O2 Delivery O2 Flow Rate FiO2 01/13/20 09:49 97.9 18 114/64 96 Room Air 01/13/20 09:39 65 Disposition: HOME, SELF-CARE Condition: Stable Patient Instructions: Burn Care Additional Instructions: Continue applying the Silvadene and keeping the wound covered and intact. Return to the emergency department with surrounding redness, swelling, drainage or bleeding. Please follow-up with your primary care doctor in the next 1 to 3 days to discuss this emergency department visit and for reevaluation. If you have any new or worsening symptoms please return to the emergency department for reevaluation. Please note that this report is being documented using GamePix technology. This can lead to erroneous entry secondary to incorrect interpretation by the dictating instrument. Bo Irving MD Jan 13, 2020 09:59
[2020-01-13 10:12] VITALS: BP 116/66
--- NOTE | 2020-01-13 10:12 | NUR ---
ER DISCHARGE NOTE: Patient is cleared to be discharged per ERMD, pt is aox4, on room air, with stable vital signs. pt was given dc instructions, pt was able to verbalize understanding, pt id band removed. pt is able to ambulate with steady gait. pt took all belongings.
== END 2020-01-13 10:12 | disposition home or self-care (01) ==
LOC: EMR 09:39
DX: T22.211A Burn of second degree of right forearm, initial encounter (principal); X13.1XXA Other contact with steam and other hot vapors, initial encounter; Y92.9 Unspecified place or not applicable; B20 Human immunodeficiency virus [HIV] disease; G62.9 Polyneuropathy, unspecified
CPT/HCPCS: 99282